=== PATIENT | male | born 1970 | race Caucasian/White ===

== ENCOUNTER 2020-05-01 12:42 | Emergency (ER) | payer BC, OTHER ==
[2020-05-01 12:57] VITALS: BP 155/110; PULSE 103; TEMP 98.9; BMI 17.1
[2020-05-01] MEDS ORDERED: DIPHTH,PERTUSS(ACELL),TET 0.5 ML DISP.SYRIN IM ONE ×2 (12:57→13:14)
--- NOTE | 2020-05-01 12:58 | PDOC ---
Rapid Medical Evaluation Time Seen by Provider: 05/01/20 12:53 Medical Evaluation: Allergies Allergy/AdvReac Type Severity Reaction Status Date / Time No Known Allergies Allergy Verified 05/01/20 12:53 05/01/20 12:54 Pt presents to the ER for a splinter/piece of wood stuck on the R thumb. He states he removed a piece of it at home, however, there is still a piece out that he had trouble removing on his own. Does not remember last tetanus shot. R hand dominant. Exam: Splinter in the posterior aspect of the R thenar eminence Orders: boostrix, x-ray Pt to proceed to the ER for further evaluation Discharge Disposition - Diagnosis Foreign body (FB) in soft tissue - Referrals - Patient Instructions - Post Discharge Activity
--- NOTE | 2020-05-01 13:33 | PDOC ---
History of Present Illness - General Chief Complaint: Foreign Body (FB) Stated Complaint: Foreign Body (FB)/rt hand Time Seen by Provider: 05/01/20 12:53 - History of Present Illness Initial Comments: 05/01/20 13:29 50-year-old male History of throat cancer presents for evaluation of foreign body in the right hand. Patient was working with wood and obtained a splinter he points to the thenar eminence as the area of his discomfort. Past History - Medical History Allergies/Adverse Reactions: Allergies Allergy/AdvReac Type Severity Reaction Status Date / Time No Known Allergies Allergy Verified 05/01/20 12:53 Home Medications: Ambulatory Orders Cephalexin [Keflex] 500 mg PO TID #15 capsule 05/01/20 COPD: No Other medical history: NECK CANCER - Immunization History Immunization Up to Date: No - Psycho-Social/Smoking History Smoking History: Current every day smoker Information on smoking cessation initiated: No - Substance Abuse Hx (Audit-C & DAST Scrn) How often the patient has a drink containing alcohol: 2-3 times / week Number of drinks the patient has on a typical day: 3 or 4 How often the patient has six or more drinks on one occasion: Never Score: In Men: 4 or > Positive; In Women: 3 or > Positive: 4 Screen Result (Pos requires Nsg. Audit-10AR): Positive In the last yr the pt used illegal drug/Rx for NonMed reason: No Score: Yes response is considered Positive: 0 Screen Result (Positive result requires Nsg. DAST-10): Negative Review of Systems - Review of Systems Musculoskeletal: Yes: See HPI *Physical Exam - Vital Signs Last Vital Signs Temp Pulse Resp BP Pulse Ox 98.9 F 103 H 20 155/110 H 98 05/01/20 12:54 05/01/20 12:54 05/01/20 12:54 05/01/20 12:54 05/01/20 12:54 - Physical Exam 05/01/20 13:30 There is an entry wound on the dorsum of the hand on the skin overlying the thenar eminence and a small area of wood subcentimeter sticking out on the volar aspect of the webspace. Neurovascular intact no gross sensorimotor deficits. ED Treatment Course - Medications Given in the ED: ED Medications Discontinued Medications Generic Name Dose Route Start Last Admin Trade Name Freq PRN Reason Stop Dose Admin Diphtheria/Tetanus/Acell Pertussis 0.5 ml 05/01/20 12:57 05/01/20 13:15 Boostrix - IM 05/01/20 12:58 0.5 ml .ONCE ONE Administration Medical Decision Making - Medical Decision Making 05/01/20 13:30 3 3 cc of 1% lidocaine without epinephrine was injected aseptically, a small mi llimeter sized piece was removed from the palmar aspect of the hand in the webspace and then another piece was removed. 2 pieces until removed. No other foreign body was identified. X-rays show no radiopacities. Neurovascular intact post removal of foreign body. Dry sterile dressing was placed. I have reviewed the pathophysiology with the patient. They are in agreement with the treatment plan all questions were answered to their satisfaction. Understanding for follow-up without fail was also conveyed to the patient. Again they are in agreement. Discharge - Discharge Information Problems reviewed: Yes Clinical Impression/Diagnosis: Foreign body (FB) in soft tissue Condition: Stable Disposition: HOME - Admission No - Follow up/Referral Referrals: Sonny Alexis [Primary Care Provider] - Wilman Wong MD [Staff Physician] - - Patient Discharge Instructions Additional Instructions: Continue with your current pain medication as directed and return to the emergency room for further issues. Without fail follow-up with orthopedic hand surgery in 1 to 2 days for further evaluation and treatment options. Please take the prophylactic antibiotics as directed for the next 5 days. - Post Discharge Activity
== END 2020-05-01 13:40 | disposition home or self-care (01) ==
LOC: JER 12:42
PROC: 3E0234Z Introduction of Serum, Toxoid and Vaccine into Muscle, Percutaneous Approach (ICD-10-PCS; principal; 2020-05-01)
DX: M79.89 Other specified soft tissue disorders (principal)
CPT/HCPCS: 73130-TC-RT-FY; 90471; 90715; 99284-25

== ENCOUNTER 2021-05-01 14:07 | Emergency (ER) | payer OTHER ==
[2021-05-01 14:17] VITALS: TEMP 98; BMI 17.1
[2021-05-01 15:03] LABS: BASO % 1.3 % (0-2.0); EOS % 7.4 % (0-4.5); HEMATOCRIT 48.1 % (35.4-49); HEMOGLOBIN 16.8 GM/dL (11.7-16.9); MCH 35.3 pg (25.7-33.7); MCHC 34.9 g/dl (32.0-35.9); MEAN CELL VOLUME 101.1 fl (80-96); MEAN PLT VOLUME 6.3 fl (7.5-11.1); MONO % 8.7 % (3.8-10.2); NEUT % 65.6 % (42.8-82.8); PLATELET COUNT 257 10^3/uL (134-434); RBC 4.76 M/mm3 (4.00-5.60); RDW 13.3 % (11.9-15.9); WHITE BLOOD COUNT 6.7 K/mm3 (4.0-10.0)
[2021-05-01 15:20] LABS: CHLORIDE 103 mmol/L (98-107); SODIUM 138 mmol/L (136-145)
[2021-05-01 15:23] LABS: ALBUMIN 4.1 g/dl (3.4-5.0); ANION GAP 6 MMOL/L (8-16); BLOOD UREA NITROGEN 13.4 mg/dL (7-18); CO2 30 mmol/L (21-32); GLUCOSE,RANDOM 66 mg/dL (74-106); LIPASE 112 U/L (73-393)
[2021-05-01 15:25] LABS: SGPT/ALT 14 U/L (13-61)
[2021-05-01 15:26] LABS: CREATININE 1.5 mg/dL (0.55-1.3); SGOT/AST 10 U/L (15-37)
[2021-05-01 15:27] LABS: BILIRUBIN,TOTAL 0.4 mg/dL (0.2-1); TOT PROT 7.6 g/dl (6.4-8.2)
[2021-05-01 15:28] LABS: ALK PHOS 86 U/L (45-117)
[2021-05-01] MEDS ORDERED: DEXTROSE 50%-WATER 25 GM/50 ML DISP.SYRIN ONE (15:34)
[2021-05-01] MEDS ORDERED: LACTATED RINGERS SOLUTION 1000 ML INFUS.BAG IV ONE (15:34)
[2021-05-01] MEDS ORDERED: DEXTROSE 50%-WATER - 25 GM/50 ML VIAL IVPUSH ONE (15:34)
[2021-05-01 16:53] VITALS: BP 152/88; PULSE 83
== END 2021-05-01 16:53 | disposition home or self-care (01) ==
LOC: JER 14:07
PROC: 3E033GC Introduction of Other Therapeutic Substance into Peripheral Vein, Percutaneous Approach (ICD-10-PCS; principal; 2021-05-01)
DX: R07.9 Chest pain, unspecified (principal)
CPT/HCPCS: 36415; 71046-TC-FY; 80053; 82550; 83690; 84484; 85025; 93005; 93010; 96374; 99285-25